=== PATIENT | female | born 1970 | race African-American/Black ===

== ENCOUNTER 2017-03-27 19:13 | Emergency (ER) | payer SELFPAY ==
[~2017-03-27] VITALS: Ht 170.2 cm; Wt 59.0 kg
[2017-03-27 19:32] VITALS: BP 168/92
[2017-03-27] MEDS ORDERED: PENICILLIN V P500 MG PO (19:47)
[2017-03-27] MEDS ORDERED: TRAMADOL HCL50 MG ORAL (19:47)
--- NOTE | 2017-03-27 19:48 | Emergency Room Report ---
History of Present Illness General Chief Complaint: Toothache Source: Patient Present Illness HPI Patient is a 46-year-old female who presents today with complaints of a toothache that began 2 days ago. She states pain is currently 8/10 severity and has been taking ibuprofen with little relief. Patient reports an associated subjective fever. Denies nausea, vomiting or associated symptoms. Allergies: Coded Allergies: No Known Allergies (Unverified , 03/27/17) Patient History Reviewed Nursing Documentation: PMH: Agreed, PSxH: Agreed Nursing Documentation-PMH Past Medical History: No Stated History Review of Systems ENT: Reports: other - dental pain All Other Systems: negative except mentioned in HPI Physical Exam Vital Signs Date Time Temp Pulse Resp B/P (MAP) Pulse Ox O2 Delivery O2 Flow Rate FiO2 03/27/17 19:23 98.4 104 21 168/92 98 Room Air Sp02 EP Interpretation: reviewed, normal General Appearance: no apparent distress, alert, GCS 15, non-toxic Head: normocephalic, atraumatic Eyes: bilateral eye normal inspection, bilateral eye PERRL ENT: hearing grossly normal, normal pharynx, no angioedema, normal voice, other - extensive dental caries, fractured tooth #29; 1cm induration and TTP overlying the right mandible, no ludwigs angina or peritonsilar abscess Neck: full range of motion, supple/symm/no masses Respiratory: chest non-tender, lungs clear, normal breath sounds, speaking full sentences Cardiovascular #1: regular rate, rhythm, no edema Cardiovascular #2: 2+ carotid (R), 2+ carotid (L), 2+ radial (R), 2+ radial (L) , 2+ dorsalis pedis (R), 2+ dorsalis pedis (L) Gastrointestinal: normal bowel sounds, non tender, soft, non-distended, no guarding, no rebound Rectal: deferred Genitourinary: normal inspection, no CVA tenderness Musculoskeletal: back normal, gait/station normal, normal range of motion, non- tender, calf tenderness Neurologic: alert, oriented x3, responsive, motor strength/tone normal, sensory intact, speech normal Psychiatric: judgement/insight normal, memory normal, mood/affect normal, no suicidal/homicidal ideation Reflexes: 3+ bicep (R), 3+ bicep (L), 3+ tricep (R), 3+ tricep (L), 3+ knee (R) , 3+ knee (L) Skin: normal color, no rash, warm/dry, well hydrated Lymphatic: no adenopathy Medical Decision Making PA Attestation supervising physician is Dr. Dodge ER Course Patient is a 46-year-old female presents today with complaints of a toothache. She is found to have a dental abcess on physical exam. We will discharge patient home with penicillin and tramadol for pain and is instructed to followup with dentist for further evaluation and management. Patient understands and is agreeable with plan. Last Vital Signs Date Time Temp Pulse Resp B/P (MAP) Pulse Ox O2 Delivery O2 Flow Rate FiO2 03/27/17 19:23 98.4 104 21 168/92 98 Room Air Status: improved Disposition: HOME, SELF-CARE Condition: Stable Scripts Tramadol Hcl* (ULTRAM*) 50 Mg Tablet 50 MG ORAL Q6H Y for For Pain, #30 TAB 0 Refills Prov: Moon Rodgers P.A. 03/27/17 Penicillin V Potassium* (PENVK*) 500 Mg Tablet 500 MG PO Q6H for 10 Days, #28 TAB 0 Refills Prov: Ana MariaMoon P.A. 03/27/17 Moon Rodgers P.ACharlene Mar 27, 2017 19:48
[2017-03-27 20:02] VITALS: BP 168/92
== END 2017-03-27 21:00 | disposition home or self-care (01) ==
LOC: EMR 20:35
DX: K08.89 Other specified disorders of teeth and supporting structures (principal); K02.9 Dental caries, unspecified; K04.7 Periapical abscess without sinus; S02.5XXA Fracture of tooth (traumatic), initial encounter for closed fracture; X58.XXXA Exposure to other specified factors, initial encounter; Y93.9 Activity, unspecified; Y92.9 Unspecified place or not applicable
CPT/HCPCS: 99284

== ENCOUNTER 2018-11-04 14:50 | Emergency (ER) | payer OTHER ==
[~2018-11-04] VITALS: Ht 170.2 cm; Wt 59.0 kg
[~2018-11-04 14:50] MED LIST: PENICILLIN V P500 MG PO; TRAMADOL HCL50 MG ORAL
[2018-11-04] MEDS ORDERED: NKM (15:09)
[2018-11-04 15:20] VITALS: BP 200/121
[2018-11-04 16:52] VITALS: BP_SYST 196; BP_SYST 202; BP_DIAS 114; BP_DIAS 129
[2018-11-04 17:14] LABS: APPEARANCE,URINE CLEAR; BASOPHILS % (AUTO) 1.6 % (0.0-2.0); BILIRUBIN, URINE NEGATIVE (NEGATIVE); COLOR,URINE PALE YELLOW; EOSINOPHILS % (AUTO) 1.1 % (0.0-3.0); GLUCOSE, URINE (UA) NEGATIVE (NEGATIVE); HEMATOCRIT 42.3 % (37.0-47.0); HEMOGLOBIN 14.5 G/DL (12.0-16.0); KETONES,URINE NEGATIVE (NEGATIVE); LEUKOCYTE ESTERASE ,URINE NEGATIVE (NEGATIVE); LYMPHOCYTES % (AUTO) 37.1 % (20.0-45.0); MEAN CORPUSCULAR VOLUME 94 FL (80-99); MONOCYTES % (AUTO) 6.3 % (1.0-10.0); NITRITE,URINE NEGATIVE (NEGATIVE); PH,URINE 6.5 (4.5-8.0); PLATELET COUNT 190 K/UL (150-450); PROTEIN,URINE NEGATIVE (NEGATIVE); RED BLOOD COUNT 4.52 M/UL (4.20-5.40); RED CELL DISTRIBUTION WIDTH 12.2 % (11.6-14.8); UROBILINOGEN,URINE NORMAL MG/DL (0.0-1.0); WHITE BLOOD COUNT 7.1 K/UL (4.8-10.8)
[2018-11-04 17:24] LABS: ANION GAP 8 mmol/L (5-15); BLOOD UREA NITROGEN 12 mg/dL (7-18); CALCIUM 9.1 MG/DL (8.5-10.1); CARBON DIOXIDE 29 MMOL/L (21-32); CHLORIDE 104 MMOL/L (98-107); CREATININE 0.9 MG/DL (0.55-1.30); POTASSIUM 3.7 MMOL/L (3.5-5.1); SODIUM 141 MMOL/L (136-145)
[2018-11-04 17:38] LABS: ALANINE AMINOTRANSFERASE 35 U/L (12-78); ALBUMIN 3.9 G/DL (3.4-5.0); ALBUMIN/GLOBULIN RATIO 1.1 (1.0-2.7); ALKALINE PHOSPHATASE 151 U/L (46-116); ASPARTATE AMINO TRANSFERASE 33 U/L (15-37); CKMB 0.8 NG/ML (0.0-3.6)
[2018-11-04] MEDS ORDERED: OCUFLOX5 ML OP (17:48)
[2018-11-04] MEDS ORDERED: NORVASC10 MG ORAL (17:48)
[2018-11-04 17:55] VITALS: BP 196/116
--- NOTE | 2018-11-04 22:07 | Emergency Room Report ---
History of Present Illness General Chief Complaint: Eye Problems Source: Patient Present Illness HPI Patient is a 48 old female primarily resenting for eye pain with discharge. This occurred one week prior to the left eye and then spread to the right eye as well. Patient states that she noticed white discharge and her eyes were crusted shut. During triage, blood pressure was noted to be significantly elevated. Patient denies known history of hypertension. She denies symptoms including headache, blurred vision, chest pain, shortness of breath, nausea, vomiting, fever Allergies: Coded Allergies: No Known Allergies (Unverified , 03/27/17) Patient History Past Medical History: see triage record Pertinent Family History: none Last Menstrual Period: 09/2018 Reviewed Nursing Documentation: PMH: Agreed; PSxH: Agreed Nursing Documentation-PMH Past Medical History: No Stated History Review of Systems All Other Systems: negative except mentioned in HPI Physical Exam Vital Signs Date Time Temp Pulse Resp B/P (MAP) Pulse Ox O2 Delivery O2 Flow Rate FiO2 11/04/18 15:02 98.1 72 14 96 Room Air 11/04/18 15:20 200/121 Sp02 EP Interpretation: reviewed, normal General Appearance: no apparent distress, alert, GCS 15, non-toxic Head: normocephalic, atraumatic Eyes: bilateral eye PERRL, bilateral eye EOMI, bilateral eye lid inflammation, bilateral eye other - white DC ENT: hearing grossly normal, normal pharynx, no angioedema, normal voice Neck: full range of motion, supple/symm/no masses Respiratory: chest non-tender, lungs clear, normal breath sounds, speaking full sentences Cardiovascular #1: regular rate, rhythm, no edema Musculoskeletal: back normal, gait/station normal, normal range of motion, non- tender Neurologic: alert, oriented x3, responsive, motor strength/tone normal, sensory intact, speech normal Psychiatric: judgement/insight normal, memory normal, mood/affect normal, no suicidal/homicidal ideation Skin: normal color, no rash, warm/dry, well hydrated Medical Decision Making PA Attestation Dr. Corbin is my supervising physician. Patient management was discussed with my supervising physician Diagnostic Impression: Primary Impression: Hypertension Qualified Codes: I10 - Essential (primary) hypertension Additional Impression: Conjunctivitis Qualified Codes: H10.30 - Unspecified acute conjunctivitis, unspecified eye ER Course Patient is a 48-year-old female presenting for possible eye infection as well as high blood pressure Eye differential diagnosis considered but not limited to: Viral conjunctivitis, bacterial conjunctivitis, blepharitis, among others Hypertension differential diagnoses considered but not limited to: Hypertensive urgency, hypertensive emergency, ACS, acute renal failure, among others Physical exam: Significantly elevated BP. No apparent distress HEENT: There is bilat eye mild white DC. No eyelid edema. EOMI. PERRL RRR Lungs CTA bilat Otherwise exam is unremarkable Labs show preserved renal function No proteinuria Cardiac enzymes WNL The patient is initially given clonidine 0.1 mg which did not decrease blood pressure. She is then given a dose of amlodipine. Blood pressure still has not decreased The patient is asking to be discharged. She is still asymptomatic. Risks discussed including CVA and . She and her mother understand. She will make appointment with PCP EARLENE. She is told to purchase a BP machine for home. ER precautions given Laboratory Tests Test 11/04/18 17:04 White Blood Count 7.1 K/UL (4.8-10.8) Red Blood Count 4.52 M/UL (4.20-5.40) Hemoglobin 14.5 G/DL (12.0-16.0) Hematocrit 42.3 % (37.0-47.0) Mean Corpuscular Volume 94 FL (80-99) Mean Corpuscular Hemoglobin 32.2 PG (27.0-31.0) H Mean Corpuscular Hemoglobin Concent 34.3 G/DL (32.0-36.0) Red Cell Distribution Width 12.2 % (11.6-14.8) Platelet Count 190 K/UL (150-450) Mean Platelet Volume 6.7 FL (6.5-10.1) Neutrophils (%) (Auto) 54.0 % (45.0-75.0) Lymphocytes (%) (Auto) 37.1 % (20.0-45.0) Monocytes (%) (Auto) 6.3 % (1.0-10.0) Eosinophils (%) (Auto) 1.1 % (0.0-3.0) Basophils (%) (Auto) 1.6 % (0.0-2.0) Urine Color Pale yellow Urine Appearance Clear Urine pH 6.5 (4.5-8.0) Urine Specific [place] 1.005 (1.005-1.035) Urine Protein Negative (NEGATIVE) Urine Glucose (UA) Negative (NEGATIVE) Urine Ketones Negative (NEGATIVE) Urine Blood Negative (NEGATIVE) Urine Nitrite Negative (NEGATIVE) Urine Bilirubin Negative (NEGATIVE) Urine Urobilinogen Normal MG/DL (0.0-1.0) Urine Leukocyte Esterase Negative (NEGATIVE) Urine HCG, Qualitative Negative (NEGATIVE) Sodium Level 141 MMOL/L (136-145) Potassium Level 3.7 MMOL/L (3.5-5.1) Chloride Level 104 MMOL/L (98-107) Carbon Dioxide Level 29 MMOL/L (21-32) Anion Gap 8 mmol/L (5-15) Blood Urea Nitrogen 12 mg/dL (7-18) Creatinine 0.9 MG/DL (0.55-1.30) Estimate Glomerular Filtration Rate > 60 mL/min (>60) Glucose Level 96 MG/DL (74-106) Calcium Level 9.1 MG/DL (8.5-10.1) Total Bilirubin 1.0 MG/DL (0.2-1.0) Aspartate Amino Transferase (AST) 33 U/L (15-37) Alanine Aminotransferase (ALT) 35 U/L (12-78) Alkaline Phosphatase 151 U/L (46-116) H Creatine Kinase MB 0.8 NG/ML (0.0-3.6) Troponin I 0.003 ng/mL (0.000-0.056) Total Protein 7.5 G/DL (6.4-8.2) Albumin 3.9 G/DL (3.4-5.0) Globulin 3.6 g/dL Albumin/Globulin Ratio 1.1 (1.0-2.7) Lab Results Impression Labs show preserved renal function No proteinuria Cardiac enzymes WNL Last Vital Signs Date Time Temp Pulse Resp B/P (MAP) Pulse Ox O2 Delivery O2 Flow Rate FiO2 11/04/18 17:55 98.1 74 14 196/116 96 Room Air Status: improved Disposition: HOME, SELF-CARE Condition: Improved Scripts Amlodipine Besylate (Norvasc) 10 Mg Tablet 10 MG ORAL DAILY, #30 TAB Prov: TERZIAN,JESICA P.A. 11/04/18 Ofloxacin (OCUFLOX) 5 Ml Drops 1 DROP OP QID, #5 ML Prov: TERZIAN,JESICA P.A. 11/04/18 Patient Instructions: Bacterial Conjunctivitis Additional Instructions: I discussed my findings with the patient. All questions and concerns have been answered. Treatment and medication compliance have been addressed. I advised the patient that they need to follow up with primary doctor as soon as possible. Return to ED if symptoms worsen, new symptoms arise such as blurred vision, chest pain, shortness of breath, or if needed for any reason. Patient verbalized understanding of discharge instructions. JESICA MANNING November 04, 2018 22:07
== END 2018-11-04 17:55 | disposition home or self-care (01) ==
LOC: EMR 15:30
DX: H10.30 Unspecified acute conjunctivitis, unspecified eye (principal); I10 Essential (primary) hypertension
CPT/HCPCS: 36415; 80053; 81003; 81025; 82553; 84484; 85025; 99284; J7040